=== PATIENT | female | born 1965 | race African-American/Black ===

== ENCOUNTER 2017-11-30 15:59 | Inpatient (IN) | payer BC ==
[2017-11-30 17:32] VITALS: BMI 28.8
--- NOTE | 2017-11-30 18:40 | HP ---
CIWA Score - CIWA Score Nausea/Vomitin-Mild Nausea/No Vomiting Muscle Tremors: None Anxiety: 2 Agitation: 0-Normal Activity Paroxysmal Sweats: 2 Orientation: 1-Uncertain about Date Tacttile Disturbances: 2-Mild Itch/Numbness/Burn (both hands) Auditory Disturbances: 2-Mild Harshness/Frighten Visual Disturbances: 0-None Headache: 3-Moderate CIWA-Ar Total Score: 13 Admission ROS S - HPI Chief Complaint: " I am trying to get my life together" Allergies/Adverse Reactions: Allergies Allergy/AdvReac Type Severity Reaction Status Date / Time No Known Allergies Allergy Verified 11/30/17 17:45 History of Present Illness: 52 yo female nicotine, alcohol, PCP, cocaine , and heroin dependence is here seeking detox. PMHX: HTN, DMII on metformin, Hep C, asthma, schizophrenia, anxiety depression. Denies auditory or visual hallucinations. Denies suicidal / homicidal ideation. Reports hx suicide attempted three month with medication and admitted to psych in [facility]. MMTP at [facility] on 90 mg, last medicated today. Unable to recall last time detox. Longest period of sobriety three years. Exam Limitations: No Limitations - Ebola screening Have you traveled outside of the country in the last 21 days: No Have you had contact with anyone from an Ebola affected area: No Have you been sick,other than usual withdrawal symptoms: No Do you have a fever: No - Review of Systems Constitutional: Chills, Diaphoresis, Loss of Appetite, Unintentional Wgt. Loss ( 10 lbs) EENT: reports: No Symptoms Reported Respiratory: reports: SOB with Exertion Cardiac: reports: Syncope (last episode 1 year ago), Other (hx of chest pain in the past) GI: reports: Diarrhea, Nausea, Poor Appetite, Poor Fluid Intake : reports: No Symptoms Reported Musculoskeletal: reports: No Symptoms Reported Integumentary: reports: No Symptoms Reported Neuro: reports: See HPI, Numbness (both hands) Endocrine: reports: No Symptoms Reported Hematology: reports: No Symptoms Reported Psychiatric: reports: Orientated x3, Depressed Other Systems: Reviewed and Negative Patient History - Patient Medical History Hx Anemia: No Hx Asthma: No Hx Chronic Obstructive Pulmonary Disease (COPD): No Hx Cancer: No Hx Cardiac Disorders: No Hx Congestive Heart Failure: No Hx Hypertension: Yes Hx Hypercholesterolemia: No Hx Pacemaker: No HX Cerebrovascular Accident: No Hx Seizures: No Hx Diabetes: No Hx Gastrointestinal Disorders: No Hx Genitourinary Disorders: No Hx Sexually Transmitted Disorders: No Hx Renal Disease (ESRD): No Hx Thyroid Disease: No Hx Human Immunodeficiency Virus (HIV): No Hx Hepatitis C: Yes Hx Depression: Yes Hx Suicide Attempt: No Hx Bipolar Disorder: No Hx Schizophrenia: Yes - Patient Surgical History Past Surgical History: No Hx Neurologic Surgery: No Hx Cataract Extraction: No Hx Cardiac Surgery: No Hx Lung Surgery: No Hx Breast Surgery: No Hx Breast Biopsy: No Hx Abdominal Surgery: No Hx Appendectomy: No Hx Cholecystectomy: No Hx Genitourinary Surgery: No Hx Section: No Hx Orthopedic Surgery: No Anesthesia Reaction: No - PPD History Previous Implant?: Yes Documented Results: Negative w/o proof Implanted On Prior R Admission?: No PPD to be Administered?: Yes - Reproductive History Patient is a Female of Child Bearing Age (11 -55 yrs old): Yes (Post menopausal since age 42) - Smoking Cessation Smoking history: Current some day smoker Aproximately how many cigarettes per day: 10 Hx Chewing Tobacco Use: No Initiated information on smoking cessation: Yes 'Breaking Loose' booklet given: 11/30/17 - Substance & Tx. History Hx Alcohol Use: Yes Hx Substance Use: Yes Substance Use Type: Alcohol, Cocaine, Heroin Hx Substance Use Treatment: No (unable to recall, currenlty linked to MMTP at [facility] ) - Substances Abused Alcohol Route: Oral Frequency: Daily Amount used: liquor- 3 pints, beer- 1 six pack Age of first use: 12 Date of Last Use: 11/30/17 PCP Route: Smoking Frequency: Daily Amount used: 1 bag Age of first use: 16 Date of Last Use: 11/30/17 Cocaine Route: Smoking Frequency: Daily Amount used: 4 bags Age of first use: 16 Date of Last Use: 11/29/17 Family Disease History - Family Disease History Family Disease History: Diabetes: Mother (alive), Other: Mother Admission Physical Exam S - Vital Signs Vital Signs: Vital Signs - 24 hr 11/30/17 17:30 Temperature 99.0 F Pulse Rate 82 Respiratory 20 Rate Blood Pressure 117/74 - Physical General Appearance: Yes: Disheveled, Sweating, Anxious HEENTM: Yes: EOMI, Hearing grossly Normal, Normal ENT Inspection, Normocephalic , Normal Voice, TYSON, Pharynx Normal, Tm's normal, Other (wear glasses) Respiratory: Yes: Chest Non-Tender, Lungs Clear, Normal Breath Sounds, No Respiratory Distress, No Accessory Muscle Use Neck: Yes: Within Normal Limits Breast: Yes: Breast Exam Deferred Cardiology: Yes: Regular Rate, Murmur Abdominal: Yes: Normal Bowel Sounds, Non Tender, Soft, Protuberent Genitourinary: Yes: Within Normal Limits Back: Yes: Normal Inspection Musculoskeletal: Yes: full range of Motion, Gait Steady, Pelvis Stable Extremities: Yes: Normal Capillary Refill, Normal Inspection, Normal Range of Motion, Non-Tender Neurological: Yes: inspector elevators II-XII NML intact, Fully Oriented, Alert, Motor Strength 5/5, Other (flat affect) Integumentary: Yes: Normal Color, Warm, Moist Lymphatic: Yes: Within Normal Limits - Diagnostic (1) Alcohol dependence with withdrawal Current Visit: Yes Status: Acute Qualifiers: Complication of substance-induced condition: uncomplicated Qualified Code(s ): F10.230 - Alcohol dependence with withdrawal, uncomplicated (2) PCP dependence Current Visit: Yes Status: Acute (3) Cocaine dependence Current Visit: Yes Status: Acute (4) Opioid dependence on agonist therapy Current Visit: Yes Status: Chronic Comment: On MMTP at [facility] on 90 mg , dose pending verification (5) Diabetes mellitus, type 2 Current Visit: Yes Status: Chronic Qualifiers: Diabetes mellitus nursing home insulin use: without nursing home use Diabetes mellitus complication status: with unspecified complications Qualified Code(s) : E11.8 - Type 2 diabetes mellitus with unspecified complications (6) Murmur, cardiac Current Visit: Yes Status: Acute (7) Headache Current Visit: Yes Status: Acute Qualifiers: Headache type: unspecified Headache chronicity pattern: unspecified pattern (8) Essential hypertension Current Visit: Yes Status: Chronic (9) Psychiatric disorder Current Visit: Yes Status: Suspected Cleared for Admission [facility] - Detox or Rehab [facility] Level of Care: Medically Managed Detox Regimen/Protocol: Librium [facility] Breath Alcohol Content Breath Alcohol Content: 0 Urine Pregancy Test - Result Urine Test Results: Negative- NO Line Present Urine Drug Screen - Results Drug Screen Negative: No Urine Drug Screen Results: THC-Marijuana, ISABELLA-Cocaine, PCP-Phencyclidine, BZO- Benzodiazepines, MTD-Methadone
[2017-11-30] MEDS ORDERED: NICOTINE POLACRILEX 2 MG GUM BC PRN (19:27)
[2017-11-30] MEDS ORDERED: guaiFENesin/D-METHORPHAN HB 10 ML UNIT-DOSE CUPS PO PRN (19:27)
[2017-11-30] MEDS ORDERED: chlordiazePOXIDE HCL 25 MG CAPSULE PO PRN (19:27)
[2017-11-30] MEDS ORDERED: IBUPROFEN 400 MG TABLET (FP) PO PRN (19:27)
[2017-11-30] MEDS ORDERED: chlordiazePOXIDE HCL 25 MG CAPSULE PO ONE (19:27)
[2017-11-30] MEDS ORDERED: MAGNESIUM CITRATE 300 ML BOTTLE PO PRN (19:27)
[2017-11-30] MEDS ORDERED: LOPERAMIDE HCL 2 MG CAPSULE PO PRN (19:27)
[2017-11-30] MEDS ORDERED: MENTHOL/PHENOL 1 EACH UD MM PRN (19:27)
[2017-11-30] MEDS ORDERED: MAG HYDROX/AL HYDROX/SIMETH 30 ML UNIT-DOSE CUP PO PRN (19:27)
[2017-11-30] MEDS ORDERED: ACETAMINOPHEN 325 MG TABLET (FP) PO PRN (19:27)
[2017-11-30] MEDS ORDERED: P-EPHED 60MG/TRIPROLIDI 2.5MG TABLET PO PRN (19:27)
[2017-11-30] MEDS ORDERED: MAGNESIUM HYDROX 2400MG/30ML ORAL SUSPENSION 30 ML CUP PO PRN (19:27)
[2017-11-30] MEDS ORDERED: MELATONIN 5 MG TABLETS PO PRN (22:00)
[2017-11-30] MEDS: chlordiazePOXIDE HCL 25 MG CAPSULE PO SCH (22:15)
[2017-11-30] MEDS: THIAMINE HCL 100 MG TABLET (FP) PO SCH (22:16)
[2017-12-01] MEDS: chlordiazePOXIDE HCL 25 MG CAPSULE PO SCH ×4 (06:11→22:55)
[2017-12-01] MEDS ORDERED: METHADONE 80 MG, METHADONE 10 MG PO ONE (08:45)
[2017-12-01] MEDS ORDERED: METHADONE HCL 40 MG DISPERSABLE TABLET ONE (09:29)
[2017-12-01] MEDS ORDERED: METHADONE HCL 10 MG TABLET ONE (09:29)
[2017-12-01] MEDS ORDERED: METHADONE HCL 10 MG TABLET PO ONE (10:00)
[2017-12-01 10:19] LABS: HEMATOCRIT 38.5 % (32.4-45.2); HEMOGLOBIN 12.7 GM/dL (10.7-15.3); MCH 28.2 pg (25.7-33.7); MEAN CELL VOLUME 85.5 fl (80-96); PLATELET COUNT 157 K/MM3 (134-434); RDW 16.5 % (11.6-15.6); WHITE BLOOD COUNT 9.3 K/mm3 (4.0-10.0)
--- NOTE | 2017-12-01 11:01 | PN ---
S CIWA - CIWA Score Nausea/Vomitin-Mild Nausea/No Vomiting Muscle Tremors: 4-Moderate,w/Arms Extend Anxiety: 3 Agitation: 3 Paroxysmal Sweats: 1-Minimal Palms Moist Orientation: 0-Oriented Tacttile Disturbances: 0-None Auditory Disturbances: 0-None Visual Disturbances: 0-None Headache: 0-None Present CIWA-Ar Total Score: 12 [facility] Progress Note (SOAP) Subjective: sweat tremor irritable trouble sleep at night low energy Objective: 12/01/17 11:01 Vital Signs Temperature 98 F 12/01/17 09:17 Pulse Rate 71 12/01/17 09:17 Respiratory Rate 20 12/01/17 09:17 Blood Pressure 144/91 12/01/17 09:17 O2 Sat by Pulse Oximetry (%) Laboratory Last Values WBC 9.3 K/mm3 (4.0-10.0) 12/01/17 07:30 RBC 4.50 M/mm3 (3.60-5.2) 12/01/17 07:30 Hgb 12.7 GM/dL (10.7-15.3) 12/01/17 07:30 Hct 38.5 % (32.4-45.2) 12/01/17 07:30 MCV 85.5 fl (80-96) 12/01/17 07:30 MCH 28.2 pg (25.7-33.7) 12/01/17 07:30 MCHC 33.0 g/dl (32.0-36.0) 12/01/17 07:30 RDW 16.5 % (11.6-15.6) H 12/01/17 07:30 Plt Count 157 K/MM3 (134-434) 12/01/17 07:30 MPV 9.0 fl (7.5-11.1) 12/01/17 07:30 POC Glucometer 106 UNITS (80-120) 12/01/17 06:14 lab noted 12/01/17 11:03 ua ordered ua result pending Assessment: 12/01/17 11:03 alcohol withdrawal sx Plan: continue detox methadone 90 mg verified
[2017-12-01] MEDS: PRENATAL VITAMINS W/ FOLIC ACID TABLET (FP) PO SCH (11:10)
[2017-12-01] MEDS: NICOTINE 14 MG/24 HOURS TOPICAL PATCH TD SCH (11:10)
[2017-12-01] MEDS ORDERED: ALBUTEROL SO4 0.083% IH SOL 2.5 MG/3 ML VIAL.NEB. NEB PRN (11:23)
[2017-12-01] MEDS: ALBUTEROL SO4 18 GM HFA INHALER IH PRN (11:32)
[2017-12-01 11:53] LABS: CHLORIDE 107 mmol/L (98-107); POTASSIUM 4.1 mmol/L (3.5-5.1); SODIUM 142 mmol/L (136-145)
--- NOTE | 2017-12-01 12:08 | CONSULT ---
[facility] Psychiatric Consult - Data Date of interview: 12/01/17 Admission source: [facility] Identifying data: Patient is a 52 year single female, mother of two, domiciled, unemployed, and receiving SSI. This is patient's first admission to detox at [facility]. Pt. admitted to for Substance Abuse History: Smoking Cessation. Smoking history: Current some day smoker. Aproximately how many cigarettes per day: 10. Hx Chewing Tobacco Use: No. Initiated information on smoking cessation: Yes. 'Breaking Loose' booklet given: 11/30/17. - Substance & Tx. History. Hx Alcohol Use: Yes. Hx Substance Use: Yes. Substance Use Type: Alcohol, Cocaine, Heroin. Hx Substance Use Treatment: No (unable to recall, currenlty linked to MMTP at [facility] ). - Substances Abused. Alcohol. Route: Oral. Frequency: Daily. Amount used: liquor- 3 pints, beer- 1 six pack. Age of first use: 12. Date of Last Use: 11/30/17. PCP. Route: Smoking. Frequency: Daily. Amount used: 1 bag. Age of first use: 16. Date of Last Use: 11/30/17. Cocaine. Route: Smoking. Frequency: Daily. Amount used: 4 bags. Age of first use: 16. Date of Last Use: 11/29/17 Medical History: hypertension, Hep C Psychiatric History: Patient reports multiple psychiatric hospitalizations, most recently three months ago at [facility] for suicidal ideation. Diagnosis of schizoaffective. OPD provided by [facility] in [place]. States she receives haldol deconate injection but has not received it in over one month. Pharmacy [facility] at [phone] and able to speak to pharmacist. Most recent haldol deconate injection 100mg refill was on . Physical/Sexual Abuse/Trauma History: Denies. Mental Status Exam - Mental Status Exam Alert and Oriented to: Time, Place, Person Cognitive Function: Fair Patient Appearance: Well Groomed Mood: Euthymic Affect: Constricted Patient Behavior: Cooperative Speech Pattern: Delayed Voice Loudness: Moderately Soft/Quiet Thought Process: Goal Oriented Thought Disorder: Not Present Hallucinations: Denies Suicidal Ideation: Denies Homicidal Ideation: Denies Insight/Judgement: Poor Sleep: Fair Muscle strength/Tone: Normal Gait/Station: Normal Psychiatric Findings - Problem List ([place] 1, 2,3) (1) Alcohol dependence with withdrawal Current Visit: Yes Status: Acute Qualifiers: Complication of substance-induced condition: uncomplicated Qualified Code(s ): F10.230 - Alcohol dependence with withdrawal, uncomplicated (2) Cocaine dependence Current Visit: Yes Status: Acute Qualifiers: Substance use status: uncomplicated Qualified Code(s): F14.20 - Cocaine dependence, uncomplicated (3) PCP dependence Current Visit: Yes Status: Acute (4) Opioid dependence on agonist therapy Current Visit: Yes Status: Chronic Comment: On MMTP at [facility] on 90 mg , dose pending verification (5) Schizoaffective disorder Current Visit: Yes Status: Chronic - Initial Treatment Plan Initial Treatment Plan: Psychoeducation provided. Detoxification in progress. Pharmacy [facility] at [phone] and able to speak to pharmacist. Pt is prescribed haldol deconate injection 100mg. Last prescription refill was on . Pt. reports outpatient care at [facility]. Unable to reach facility. Will order haldol deconate on 12/01/17.
[2017-12-01 12:09] LABS: ALBUMIN 3.3 g/dl (3.4-5.0); ALK PHOS 98 U/L (45-117); ANION GAP 8 (8-16); BILIRUBIN,TOTAL 0.4 mg/dL (0.2-1.0); BLOOD UREA NITROGEN 8 mg/dL (7-18); CALCIUM 8.9 mg/dL (8.5-10.1); CO2 27 mmol/L (21-32); CREATININE 0.9 mg/dL (0.55-1.02); GLUCOSE,RANDOM 92 mg/dL (74-106); SGOT/AST 42 U/L (15-37); SGPT/ALT 47 U/L (12-78); TOT PROT 6.7 g/dl (6.4-8.2)
--- NOTE | 2017-12-01 17:59 | EKG ---
Test Reason : Blood Pressure : / mmHG Vent. Rate : 080 BPM Atrial Rate : 080 BPM P-R Int : 174 ms QRS Dur : 064 ms QT Int : 402 ms P-R-T Axes : 068 037 052 degrees QTc Int : 463 ms POOR DATA QUALITY, INTERPRETATION MAY BE ADVERSELY AFFECTED NORMAL SINUS RHYTHM NORMAL ECG NO PREVIOUS ECGS AVAILABLE Confirmed by MD JOSE G, IDALAI ([id number]) on 12/01/2017 5:59:35 PM Referred By: Confirmed By:IDALIA ARAIZA MD
[2017-12-01] MEDS: THIAMINE HCL 100 MG TABLET (FP) PO SCH (22:57)
[2017-12-02] MEDS ORDERED: METHADONE HCL 10 MG TABLET ONE (05:24)
[2017-12-02] MEDS ORDERED: METHADONE HCL 40 MG DISPERSABLE TABLET ONE (05:24)
[2017-12-02] MEDS: chlordiazePOXIDE HCL 25 MG CAPSULE PO SCH ×3 (05:37→17:30)
[2017-12-02] MEDS: METHADONE 80 MG, METHADONE 10 MG PO SCH (05:37)
[2017-12-02] MEDS ORDERED: METHADONE HCL 10 MG TABLET PO SCH (06:00)
[2017-12-02] MEDS: PRENATAL VITAMINS W/ FOLIC ACID TABLET (FP) PO SCH (10:20)
[2017-12-02] MEDS: NICOTINE 14 MG/24 HOURS TOPICAL PATCH TD SCH (10:22)
--- NOTE | 2017-12-02 10:54 | PN ---
[facility] CIWA - CIWA Score Nausea/Vomitin-No Nausea/No Vomiting Muscle Tremors: 3 Anxiety: 3 Agitation: 3 Paroxysmal Sweats: 1-Minimal Palms Moist Orientation: 0-Oriented Tacttile Disturbances: 1-Very Mild Itch/Numbness Auditory Disturbances: 0-None Visual Disturbances: 0-None Headache: 0-None Present CIWA-Ar Total Score: 11 [facility] Progress Note (SOAP) Subjective: sweat tremor anxiety restlessness Objective: 12/02/17 10:55 Vital Signs Temperature 98.1 F 12/02/17 06:32 Pulse Rate 63 12/02/17 06:32 Respiratory Rate 18 12/02/17 06:32 Blood Pressure 147/94 12/02/17 06:32 O2 Sat by Pulse Oximetry (%) Laboratory Last Values WBC 9.3 K/mm3 (4.0-10.0) 12/01/17 07:30 RBC 4.50 M/mm3 (3.60-5.2) 12/01/17 07:30 Hgb 12.7 GM/dL (10.7-15.3) 12/01/17 07:30 Hct 38.5 % (32.4-45.2) 12/01/17 07:30 MCV 85.5 fl (80-96) 12/01/17 07:30 MCH 28.2 pg (25.7-33.7) 12/01/17 07:30 MCHC 33.0 g/dl (32.0-36.0) 12/01/17 07:30 RDW 16.5 % (11.6-15.6) H 12/01/17 07:30 Plt Count 157 K/MM3 (134-434) 12/01/17 07:30 MPV 9.0 fl (7.5-11.1) 12/01/17 07:30 Sodium 142 mmol/L (136-145) 12/01/17 07:30 Potassium 4.1 mmol/L (3.5-5.1) 12/01/17 07:30 Chloride 107 mmol/L (98-107) 12/01/17 07:30 Carbon Dioxide 27 mmol/L (21-32) 12/01/17 07:30 Anion Gap 8 (8-16) 12/01/17 07:30 BUN 8 mg/dL (7-18) 12/01/17 07:30 Creatinine 0.9 mg/dL (0.55-1.02) 12/01/17 07:30 Creat Clearance w eGFR > 60 (>60) 12/01/17 07:30 POC Glucometer 94 UNITS (80-120) 12/02/17 05:37 Random Glucose 92 mg/dL (74-106) 12/01/17 07:30 Calcium 8.9 mg/dL (8.5-10.1) 12/01/17 07:30 Total Bilirubin 0.4 mg/dL (0.2-1.0) 12/01/17 07:30 AST 42 U/L (15-37) H 12/01/17 07:30 ALT 47 U/L (12-78) 12/01/17 07:30 Alkaline Phosphatase 98 U/L (45-117) 12/01/17 07:30 Total Protein 6.7 g/dl (6.4-8.2) 12/01/17 07:30 Albumin 3.3 g/dl (3.4-5.0) L 12/01/17 07:30 lab noted Assessment: 12/02/17 10:56 withdrawal sx Plan: continue detox
--- NOTE | 2017-12-02 15:42 | PN ---
[facility] Progress Note Note: Psychiatric nurse pracititoner note: Call placed at [place] [facility] at [phone] and was unable to reach physician. Lap Cutter Truer Operator was able to speak to ac at [facility] pharmacy and it was confirmed that patient receives haldol decanoate injection 100mg monthly. Most recent prescription was filled on 10/08/17. Pt. reports receiving her most recent haldol decanoate approximately 4-5 weeks ago and is requesting to her monthly injection. Verbal consent given. Haldol decanoate 100mg ordered.
[2017-12-02] MEDS ORDERED: HALOPERIDOL DECANOATE 100 MG/ML IM ONE (16:00)
--- NOTE | 2017-12-02 17:55 | PN ---
S Progress Note Note: Reported by RN BP 150/105. Patient not treated with any antihypertensives. No physical complaints voiced to RN. Will order Clonidine 0.1mg po stat. Continue to monitor clinically.
[2017-12-02] MEDS ORDERED: cloNIDine HCL 0.1 MG TABLET PO ONE (18:00)
[2017-12-02] MEDS: THIAMINE HCL 100 MG TABLET (FP) PO SCH (22:24)
[2017-12-02] MEDS: chlordiazePOXIDE 5 MG CAPSULE PO SCH (22:24)
[2017-12-03] MEDS: chlordiazePOXIDE 5 MG CAPSULE PO SCH ×3 (05:34→16:45)
[2017-12-03] MEDS ORDERED: METHADONE HCL 40 MG DISPERSABLE TABLET ONE (05:36)
[2017-12-03] MEDS ORDERED: METHADONE HCL 10 MG TABLET ONE (05:36)
[2017-12-03] MEDS: METHADONE 80 MG, METHADONE 10 MG PO SCH (05:36)
--- NOTE | 2017-12-03 11:00 | PN ---
[facility] Progress Note (SOAP) Subjective: feeling better less sweat no tremor sleep better at night Objective: 12/03/17 11:01 Vital Signs Temperature 97.5 F L 12/03/17 09:13 Pulse Rate 71 12/03/17 09:13 Respiratory Rate 20 12/03/17 09:13 Blood Pressure 129/87 12/03/17 09:13 O2 Sat by Pulse Oximetry (%) Laboratory Last Values WBC 9.3 K/mm3 (4.0-10.0) 12/01/17 07:30 RBC 4.50 M/mm3 (3.60-5.2) 12/01/17 07:30 Hgb 12.7 GM/dL (10.7-15.3) 12/01/17 07:30 Hct 38.5 % (32.4-45.2) 12/01/17 07:30 MCV 85.5 fl (80-96) 12/01/17 07:30 MCH 28.2 pg (25.7-33.7) 12/01/17 07:30 MCHC 33.0 g/dl (32.0-36.0) 12/01/17 07:30 RDW 16.5 % (11.6-15.6) H 12/01/17 07:30 Plt Count 157 K/MM3 (134-434) 12/01/17 07:30 MPV 9.0 fl (7.5-11.1) 12/01/17 07:30 Sodium 142 mmol/L (136-145) 12/01/17 07:30 Potassium 4.1 mmol/L (3.5-5.1) 12/01/17 07:30 Chloride 107 mmol/L (98-107) 12/01/17 07:30 Carbon Dioxide 27 mmol/L (21-32) 12/01/17 07:30 Anion Gap 8 (8-16) 12/01/17 07:30 BUN 8 mg/dL (7-18) 12/01/17 07:30 Creatinine 0.9 mg/dL (0.55-1.02) 12/01/17 07:30 Creat Clearance w eGFR > 60 (>60) 12/01/17 07:30 POC Glucometer 95 UNITS (80-120) 12/03/17 05:33 Random Glucose 92 mg/dL (74-106) 12/01/17 07:30 Calcium 8.9 mg/dL (8.5-10.1) 12/01/17 07:30 Total Bilirubin 0.4 mg/dL (0.2-1.0) 12/01/17 07:30 AST 42 U/L (15-37) H 12/01/17 07:30 ALT 47 U/L (12-78) 12/01/17 07:30 Alkaline Phosphatase 98 U/L (45-117) 12/01/17 07:30 Total Protein 6.7 g/dl (6.4-8.2) 12/01/17 07:30 Albumin 3.3 g/dl (3.4-5.0) L 12/01/17 07:30 RPR Titer Nonreactive (NONREACTIVE) 12/01/17 07:30 lab noted Assessment: 12/03/17 11:01 mild withdrawal sx Plan: medically supervised detox
[2017-12-03] MEDS: PRENATAL VITAMINS W/ FOLIC ACID TABLET (FP) PO SCH (11:25)
[2017-12-03] MEDS: NICOTINE 14 MG/24 HOURS TOPICAL PATCH TD SCH (11:26)
[2017-12-03] MEDS: chlordiazePOXIDE HCL 10 MG CAPSULE PO SCH (22:38)
[2017-12-03] MEDS: THIAMINE HCL 100 MG TABLET (FP) PO SCH (22:39)
[2017-12-04] MEDS ORDERED: METHADONE HCL 10 MG TABLET ONE (05:34)
[2017-12-04] MEDS ORDERED: METHADONE HCL 40 MG DISPERSABLE TABLET ONE (05:34)
[2017-12-04] MEDS: METHADONE 80 MG, METHADONE 10 MG PO SCH (05:35)
[2017-12-04] MEDS: chlordiazePOXIDE HCL 10 MG CAPSULE PO SCH ×2 (05:35→10:18)
[2017-12-04] MEDS: ALBUTEROL SO4 18 GM HFA INHALER IH PRN (05:53)
[2017-12-04] MEDS ORDERED: amLODIPine BESYLATE 5 MG TABLET (FP) PO SCH (10:00)
[2017-12-04] MEDS: NICOTINE 14 MG/24 HOURS TOPICAL PATCH TD SCH (10:18)
[2017-12-04] MEDS: PRENATAL VITAMINS W/ FOLIC ACID TABLET (FP) PO SCH (10:18)
--- NOTE | 2017-12-04 10:59 | PN ---
S Progress Note (SOAP) Subjective: alert,no complaint Objective: 12/04/17 10:58 Vital Signs Temperature 97.0 F L 12/04/17 06:00 Pulse Rate 92 H 12/04/17 06:00 Respiratory Rate 18 12/04/17 06:00 Blood Pressure 131/84 12/04/17 06:00 O2 Sat by Pulse Oximetry (%) Assessment: 12/04/17 10:58 detox completed,no withdrawal symptom Plan: discharge today,follow up with after care program as arrangement
--- NOTE | 2017-12-04 11:04 | DS ---
[facility] Detox Discharge Summary Admission Date: 11/30/17 Discharge Date: 12/04/17 - History Present History: Alcohol Dependence, Opioid Dependence Additional Comments: follow up with after care program as arrangement Pertinent Past History: hypertension heart murmur - Physical Exam Results Vital Signs: Vital Signs Temperature 97.0 F L 12/04/17 06:00 Pulse Rate 92 H 12/04/17 06:00 Respiratory Rate 18 12/04/17 06:00 Blood Pressure 131/84 12/04/17 06:00 O2 Sat by Pulse Oximetry (%) Pertinent Admission Physical Exam Findings: withdrawal signs and symptom - Treatment Hospital Course: Detox Protocol Followed, Detoxed Safely, Responded well, Discharged Condition Good, Rehab Referral Accepted Patient has Accepted a Rehab Referral to: [facility] - Medication Discharge Medications: Ambulatory Orders Methadone [Dolophine -] 90 mg PO DAILY@0600 12/01/17 - Diagnosis (1) Alcohol dependence with withdrawal Current Visit: Yes Status: Acute Qualifiers: Complication of substance-induced condition: uncomplicated Qualified Code(s ): F10.230 - Alcohol dependence with withdrawal, uncomplicated (2) Essential hypertension Current Visit: Yes Status: Chronic (3) Opioid dependence on agonist therapy Current Visit: Yes Status: Chronic - AMA Did Patient Leave Against Medical Advice: No
[2017-12-04 14:12] VITALS: BP 138/76; PULSE 56; TEMP 97.5
== END 2017-12-04 16:47 | disposition home or self-care (01) | DRG 773 ==
LOC: YASAS 15:59 → Y6N 18:28
PROVIDERS: ADMIT Surgery; ATTEND Surgery
PROC: HZ2ZZZZ Detoxification Services for Substance Abuse Treatment (ICD-10-PCS; principal; 2017-11-30)
DX: F10.230 Alcohol dependence with withdrawal, uncomplicated (principal); F11.20 Opioid dependence, uncomplicated; F14.20 Cocaine dependence, uncomplicated; F16.20 Hallucinogen dependence, uncomplicated; F17.210 Nicotine dependence, cigarettes, uncomplicated; F25.9 Schizoaffective disorder, unspecified; F29 Unspecified psychosis not due to a substance or known physiological condition; I10 Essential (primary) hypertension; B18.2 Chronic viral hepatitis C; E11.8 Type 2 diabetes mellitus with unspecified complications; R01.1 Cardiac murmur, unspecified; R51 Headache; Z79.84 Long term (current) use of oral hypoglycemic drugs
CPT/HCPCS: 36415; 80053; 82962; 85027; 86593; 93005; 93010; J0735